=== PATIENT | male | born 1970 | race Asian ===

== ENCOUNTER 2016-11-28 04:24 | Emergency (ER) | payer BC ==
[~2016-11-28] VITALS: Ht 175.3 cm; Wt 118.0 kg
[2016-11-28] MEDS ORDERED: PROZ10 PO (04:46)
[2016-11-28] MEDS ORDERED: TRAZ-147 PO (04:46)
[2016-11-28] MEDS ORDERED: ALPR0.255 PO (04:46)
[2016-11-28] MEDS ORDERED: GABA-529 PO (04:46)
[2016-11-28] MEDS ORDERED: SERT100T12 PO (04:46)
[2016-11-28 05:12] LABS: BASOPHILS % (AUTO) 0.4 % (0.0-2.0); EOSINOPHILS % (AUTO) 3.2 % (1.0-6.0); HEMATOCRIT 37.6 % (41-53); HEMOGLOBIN 12.8 g/dL (13.5-17.5); LYMPHOCYTES # (AUTO) 1.4 K/uL (1.0-4.8); LYMPHOCYTES % (AUTO) 21.9 % (22.0-44.0); MEAN CORPUSCULAR HEMOGLOBIN 30.2 pg (26.0-34.0); MEAN CORPUSCULAR VOLUME 89 fL (80-100); MONOCYTES # (AUTO) 0.6 K/uL (0.1-1.0); MONOCYTES % (AUTO) 8.8 % (2.0-9.0); NEUTROPHILS # (AUTO) 4.1 K/uL (1.8-7.7); NEUTROPHILS % (AUTO) 65.7 % (40.0-70.0); PLATELET COUNT (AUTO) 199 K/uL (150-450); RED BLOOD CELL COUNT(AUTO) 4.23 MIL/uL (4.50-5.90); RED CELL DISTRIBUTION WIDTH 14.4 % (11.5-14.5); WHITE BLOOD COUNT (AUTO) 6.3 K/uL (4.5-11.0)
[2016-11-28 05:17] LABS: ANION GAP 10 mmol/L (8-16); CARBON DIOXIDE 23 mmol/L (22-29); CHLORIDE 107 mmol/L (98-107); CREATININE 1.04 mg/dL (0.60-1.30); GLOMERULAR FILTR. RATE CALC > 60 mL/min (>60); POTASSIUM 3.9 mmol/L (3.5-5.1); SODIUM SERUM 140 mmol/L (136-145); UREA NITROGEN, BLOOD 20 mg/dL (7-18)
[2016-11-28 05:22] LABS: ALANINE AMINOTRANSFERASE 63 U/L (12-78); ALBUMIN 3.7 g/dL (3.4-5.0); ASPARTATE AMINOTRANSFERASE 39 U/L (15-37); BILIRUBIN,TOTAL 0.3 mg/dL (0.1-1.0); TOTAL PROTEIN, SERUM 6.8 g/dL (6.4-8.2)
[2016-11-28] MEDS ORDERED: ONDANSETRON HCL 4 MG/2 ML VIAL IVP ONE (05:30)
[2016-11-28 08:30] VITALS: BP 131/94
== END 2016-11-28 09:02 | disposition home or self-care (01) ==
LOC: EMS 04:25
DX: R07.89 Other chest pain (principal); E78.00 Pure hypercholesterolemia, unspecified; Z88.0 Allergy status to penicillin
CPT/HCPCS: 36415; 71010; 80053; 80307; 84484; 85025; 93005; 99285; G0480; J2405

== ENCOUNTER 2017-05-27 18:14 | Emergency (ER) | payer BC ==
[~2017-05-27] VITALS: Ht 175.3 cm; Wt 113.6 kg
[~2017-05-27 18:14] MED LIST: ALPR0.255 PO; GABA-529 PO; PROZ10 PO; SERT100T12 PO; TRAZ-147 PO
[2017-05-27] MEDS ORDERED: TYL3B PO (18:21)
[2017-05-27] MEDS ORDERED: ONDANSETRON HCL 4 MG TABLET PO ONE (20:15)
[2017-05-27] MEDS ORDERED: HydrOXYzine HCL 10 MG TABLET PO ONE (20:15)
[2017-05-27 21:45] VITALS: BP 140/74
== END 2017-05-27 21:58 | disposition home or self-care (01) ==
LOC: EMS 18:15
DX: R11.2 Nausea with vomiting, unspecified (principal); F41.0 Panic disorder [episodic paroxysmal anxiety]; E78.00 Pure hypercholesterolemia, unspecified; F43.10 Post-traumatic stress disorder, unspecified; K21.9 Gastro-esophageal reflux disease without esophagitis; Z88.0 Allergy status to penicillin; Z79.899 Other long term (current) drug therapy
CPT/HCPCS: 99283; Q0162